=== PATIENT | female | born 1970 | race African-American/Black ===

== ENCOUNTER 2016-12-17 10:00 | Inpatient (IN) | payer MEDICARE, MEDICAID, OTHER ==
[~2016-12-17] VITALS: Ht 167.6 cm; Wt 75.7 kg
[~2016-12-17 10:00] MED LIST: ALPR0.5T PO; QUET50TA PO; ZOLP5TAB2 PO
[2016-12-17] MEDS ORDERED: FAMOTIDINE 20MG/2ML VIAL IV ONE (10:45)
[2016-12-17] MEDS ORDERED: ONDANSETRON HCL 4MG/2ML VIAL IV ONE (10:45)
[2016-12-17] MEDS ORDERED: MORPHINE SULFATE 1MG/ML 1ML INJ SYR(NEO) IV ONE (10:45)
[2016-12-17] MEDS ORDERED: LORAZEPAM 2MG/ML CPJ IV ONE (10:45)
[2016-12-17] MEDS ORDERED: SODIUM CHLORIDE 0.9% 1000ML BAG (SEPSIS BOLUS) IV ONE (10:45)
[2016-12-17] MEDS ORDERED: MORPHINE SULFATE 2 MG/ML CPJ (NOT FOR IM USE) IV SCH (11:00)
[2016-12-17 11:08] LABS: BASOPHILS % 0.3 % (0.0-2.0); HEMATOCRIT. 42.5 % (36.0-48.0); HEMOGLOBIN. 14.2 g/dL (12.0-16.0); LYMPHOCYTES % 10.7 % (20.0-50.0); MEAN CORPUSCULAR HEMOGLOBIN 31.5 pg (28.0-32.0); MEAN CORPUSCULAR VOLUME 94.4 fL (81.0-99.0); MEAN PLATELET VOLUME 8.6 fl (7.4-10.4); MONOCYTES % 2.6 % (2.0-8.0); NEUTROPHILS % 86.4 % (40.0-76.0); PLATELET 334 x1000/uL (130-400); RED CELL DISTRIBUTION WIDTH 13.6 % (11.6-14.6)
[2016-12-17 11:16] LABS: PROTHROMBIN TIME 10.8 sec (9.4-11.6)
[2016-12-17 11:23] LABS: CARBON DIOXIDE 24 mEq/L (21-32); CHLORIDE 110 mEq/L (98-107)
[2016-12-17 11:27] LABS: HCG SCREEN NEGATIVE
[2016-12-17] MEDS ORDERED: SODIUM CHLORIDE 0.9% 1,000 ML IV ONE (13:15)
[2016-12-17] MEDS ORDERED: VANCOMYCIN 1 G PREMIX 200 ML IV SCH (13:15)
[2016-12-17 13:43] LABS: CLARITY URINE CLEAR (CLEAR); COLOR URINE YELLOW (YELLOW); GLUCOSE URINE 1+ (NEGATIVE); KETONES URINE 1+ (NEGATIVE); LEUKOCYTE ESTERASE URINE NEGATIVE (NEGATIVE); NITRITE URINE NEGATIVE (NEGATIVE); OCCULT BLOOD URINE 3+ (NEGATIVE); PROTEIN URINE NEGATIVE (NEGATIVE); SPECIFIC GRAVITY URINE 1.023 (1.005-1.030); UROBILINOGEN URINE 0.2 E.U./dL (0.2-1.0)
[2016-12-17] MEDS ORDERED: PIPERACILLIN SODIUM/TAZOBACTAM 4.5 G in DEXT 5% WATER 100 ML IV SCH (14:00)
[2016-12-17] MEDS ORDERED: MORPHINE SULFATE 2 MG/ML CPJ (NOT FOR IM USE) IV ONE (14:00)
[2016-12-17 20:59] LABS: *AMPHETAMINES SCREEN URINE NEGATIVE (NEGATIVE); *BARBITURATES SCREEN URINE NEGATIVE (NEGATIVE); *BENZODIAZEPINES SCREEN URINE NEGATIVE (NEGATIVE); *COCAINE SCREEN URINE NEGATIVE (NEGATIVE); METHADONE URINE SCREEN NEGATIVE (NEGATIVE); OPIATES URINE SCREEN PRESUMTIVE POSITIVE (NEGATIVE); PHENCYCLIDINE URINE SCREEN NEGATIVE (NEGATIVE)
[2016-12-17 21:05] LABS: CANNABINOID URINE SCREEN PRESUMTIVE POSITIVE (NEGATIVE)
[2016-12-17 21:20] VITALS: BP 130/95
[2016-12-17] MEDS ORDERED: MORPHINE SULFATE 4 MG/ML CPJ (NOT FOR IM USE) IV NR (21:45)
[2016-12-17] MEDS: ONDANSETRON HCL 4MG/2ML VIAL IV PRN (22:40)
[2016-12-17] MEDS: ZOLPIDEM TARTRATE 5MG TABLET PO PRN (22:57)
[2016-12-17 23:25] LABS: CREATINE KINASE 58 IU/L (26-192); CREATINE KINASE MB FRACTION < 0.5 ng/mL (0.5-3.6); TROPONIN I < 0.02 ng/mL (0.00-0.04)
[2016-12-17 23:56] VITALS: BP 130/95
[2016-12-18 06:47] LABS: CARBON DIOXIDE 24 mEq/L (21-32); CHLORIDE 106 mEq/L (98-107); CREATINE KINASE 63 IU/L (26-192)
[2016-12-18 06:51] LABS: CREATINE KINASE MB FRACTION 0.5 ng/mL (0.5-3.6)
[2016-12-18 06:54] LABS: BASOPHILS % 0.2 % (0.0-2.0); HEMATOCRIT. 36.6 % (36.0-48.0); HEMOGLOBIN. 12.1 g/dL (12.0-16.0); LYMPHOCYTES % 14.7 % (20.0-50.0); MEAN CORPUSCULAR HEMOGLOBIN 31.4 pg (28.0-32.0); MEAN CORPUSCULAR VOLUME 94.8 fL (81.0-99.0); MEAN PLATELET VOLUME 8.6 fl (7.4-10.4); MONOCYTES % 6.7 % (2.0-8.0); NEUTROPHILS % 78.4 % (40.0-76.0); PLATELET 297 x1000/uL (130-400); RED BLOOD CELL COUNT 3.86 mill/uL (4.2-5.4); RED CELL DISTRIBUTION WIDTH 13.2 % (11.6-14.6)
[2016-12-18 07:06] LABS: TROPONIN I < 0.02 ng/mL (0.00-0.04)
[2016-12-18 08:00] VITALS: BP 117/67
[2016-12-18] MEDS: QUETIAPINE FUMARATE 50MG TABLET PO SCH (08:43)
[2016-12-18] MEDS: FAMOTIDINE 20MG TABLET PO SCH ×2 (08:44→20:56)
[2016-12-18] MEDS: ONDANSETRON HCL 4MG/2ML VIAL IV PRN (08:45)
[2016-12-18] MEDS: HYDROCODONE/ACETAMINOPHEN 10/325MG TABLET PO PRN ×3 (08:45→23:05)
[2016-12-18] MEDS ORDERED: ALPRAZOLAM 0.25 MG TABLET PO PRN (09:00)
[2016-12-18] MEDS ORDERED: ALPRAZOLAM 0.25 MG TABLET PO SCH (09:00)
[2016-12-18 12:00] VITALS: BP 115/46
[2016-12-18] MEDS ORDERED: POTASSIUM CHLORIDE INJ 40 MEQ in DEXT 5% WATER 500 ML IV SCH (13:00)
[2016-12-18] MEDS ORDERED: MAGNESIUM 1 G PREMIX 100 ML IV SCH (13:00)
[2016-12-18 16:00] VITALS: BP 120/60
[2016-12-18 20:00] VITALS: BP 112/68
[2016-12-18] MEDS: ZOLPIDEM TARTRATE 5MG TABLET PO PRN (23:04)
[2016-12-19] VITALS: BP 115/70
[2016-12-19 04:00] VITALS: BP 99/53
[2016-12-19 07:35] VITALS: BP 102/54
[2016-12-19 07:50] LABS: BASOPHILS % 0.4 % (0.0-2.0); EOSINOPHILS % 0.3 % (0.0-5.0); HEMATOCRIT. 39.1 % (36.0-48.0); LYMPHOCYTES % 35.8 % (20.0-50.0); MEAN CORPUSCULAR HEMOGLOBIN 31.5 pg (28.0-32.0); MEAN CORPUSCULAR VOLUME 94.8 fL (81.0-99.0); MEAN PLATELET VOLUME 8.7 fl (7.4-10.4); MONOCYTES % 7.2 % (2.0-8.0); NEUTROPHILS % 56.3 % (40.0-76.0); PLATELET 286 x1000/uL (130-400); RED BLOOD CELL COUNT 4.13 mill/uL (4.2-5.4); RED CELL DISTRIBUTION WIDTH 13.1 % (11.6-14.6)
[2016-12-19 08:17] LABS: CARBON DIOXIDE 29 mEq/L (21-32); CHLORIDE 104 mEq/L (98-107)
[2016-12-19] MEDS: FAMOTIDINE 20MG TABLET PO SCH (08:26)
[2016-12-19] MEDS: QUETIAPINE FUMARATE 50MG TABLET PO SCH (08:26)
[2016-12-19] MEDS: HYDROCODONE/ACETAMINOPHEN 10/325MG TABLET PO PRN (08:27)
[2016-12-19 11:59] VITALS: BP 106/67
== END 2016-12-19 14:30 | disposition left against medical advice (07) | DRG 872 ==
LOC: ER 10:00 → 6EST 15:42 → EDBEDREQSVC 16:05 → EDBEDREQ 16:05 → ENRESERV 20:19
PROVIDERS: ADMIT Internal Medicine; ATTEND Internal Medicine
DX: A41.9 Sepsis, unspecified organism (principal); E87.8 Other disorders of electrolyte and fluid balance, not elsewhere classified; F12.90 Cannabis use, unspecified, uncomplicated; F17.210 Nicotine dependence, cigarettes, uncomplicated; R65.20 Severe sepsis without septic shock; K52.9 Noninfective gastroenteritis and colitis, unspecified; Z53.21 Procedure and treatment not carried out due to patient leaving prior to being seen by health care provider; F41.9 Anxiety disorder, unspecified; K29.70 Gastritis, unspecified, without bleeding; K25.9 Gastric ulcer, unspecified as acute or chronic, without hemorrhage or perforation; A05.9 Bacterial foodborne intoxication, unspecified; Z79.899 Other long term (current) drug therapy
CPT/HCPCS: 36415; 74022; 74176; 80048; 80053; 80305; 81001; 82550; 82553; 83605; 83690; 83735; 84484; 84703; 85025; 85610; 87040; 87086; 93005; 93970; 96361; 96365; 96366; 96367; 96375; 96376; 99291; J2060; J2270; J2405; J2543; J3370; J3475; J3480; J3490; J7030; J7040; J7060